=== PATIENT | male | born 1965 | race Caucasian/White ===

== ENCOUNTER 2019-01-13 06:52 | Emergency (ER) | payer SELFPAY ==
--- NOTE | 2019-01-13 08:52 | EDM.PDOC ---
ED HPI GENERAL MEDICAL PROBLEM - General Chief Complaint: Drug or Alcohol Abuse Stated Complaint: DETOX Time Seen by Provider: 01/13/19 08:35 Source of Information: Reports: Patient, Old Records, RN History Limitations: Reports: No Limitations - History of Present Illness INITIAL COMMENTS - FREE TEXT/NARRATIVE: 53 yo male patient at [facility] was sent to the ER for evaluation of jaundice and mild confusion. Has a pHx of heavy ETOH abuse. No fever reported or pain. Onset: Gradual Onset Date: 01/12/19 Duration: Day(s): (1+), Getting Worse Location: Reports: Face (scleral icterus) Quality: Reports: Other (no pain) Severity: Moderate Improves with: Reports: None Worsens with: Reports: Other (? time) Context: Reports: Other (ETOH heavy use) Associated Symptoms: Reports: No Other Symptoms Treatments EXPEDITER SERVICE ORDER: Reports: Other (see below) Other Treatments EXPEDITER SERVICE ORDER: Valium and Ativan at [facility] Denies Pain Score (Numeric/FACES): 0 - Related Data Allergies Allergy/AdvReac Type Severity Reaction Status Date / Time No Known Allergies Allergy Verified 01/13/19 06:57 Home Meds: Home Meds Ferrous Gluconate [Fergon] 270 mg PO DAILY 01/13/19 [History] Levothyroxine [Synthroid] 50 mcg PO ACBREAKFAST 01/13/19 [History] Lisinopril/Hydrochlorothiazide [Lisinopril-Hctz 20-12.5 mg Tab] 1 each PO DAILY 01/13/19 [History] Magnesium Oxide [Magnesium] 400 mg PO DAILY 01/13/19 [History] Omeprazole 20 mg PO ONETIME 01/13/19 [History] Potassium 99 mg PO DAILY 01/13/19 [History] Sertraline [Zoloft] 100 mg PO BEDTIME 01/13/19 [History] Spironolactone [Aldactone] 50 mg PO DAILY 01/13/19 [History] atorvaSTATin [Lipitor] 40 mg PO BEDTIME 01/13/19 [History] buPROPion [Wellbutrin SR] 300 mg PO DAILY 01/13/19 [History] Past Medical History Cardiovascular History: Reports: Hypertension Gastrointestinal History: Reports: GERD, Hiatal Hernia Musculoskeletal History: Reports: Other (See Below) Other Musculoskeletal History: uses a cane Psychiatric History: Reports: Anxiety, Depression Endocrine/Metabolic History: Reports: Hypothyroidism Social & Family History - Tobacco Use Smoking Status *Q: Never Smoker Second Hand Smoke Exposure: No - Caffeine Use Caffeine Use: Reports: Tea - Alcohol Use Days Per Week of Alcohol Use: 7 Number of Drinks Per Day: 20 Total Drinks Per Week: 140 Date of Last Drink: 01/11/19 Time of Last Drink: 10:00 - Recreational Drug Use Recreational Drug Use: Yes Drug Use in Last 12 Months: No Recreational Drug Type: Reports: Methamphetamine Recreational Drug Use Frequency: Not Used In Over 6 Months ED ROS GENERAL - Review of Systems Review Of Systems: See Below Constitutional: Reports: No Symptoms HEENT: Reports: Other (scleral icterus) Respiratory: Reports: No Symptoms Cardiovascular: Reports: No Symptoms GI/Abdominal: Reports: No Symptoms : Reports: No Symptoms Musculoskeletal: Reports: No Symptoms Skin: Reports: No Symptoms Neurological: Reports: Confusion (mild) Psychiatric: Reports: No Symptoms ED EXAM, GI/ABD - Physical Exam Exam: See Below Exam Limited By: No Limitations General Appearance: Alert, WD/WN, No Apparent Distress Ears: Normal External Exam, Hearing Grossly Normal Nose: Normal Inspection, No Blood Throat/Mouth: Normal Inspection, Normal Lips, Normal Oropharynx, Normal Voice, No Airway Compromise Head: Atraumatic, Normocephalic Neck: Normal Inspection, Non-Tender Respiratory/Chest: No Respiratory Distress, Lungs Clear, Normal Breath Sounds, No Accessory Muscle Use Cardiovascular: Normal Peripheral Pulses, Regular Rate, Rhythm, No Edema GI/Abdominal Exam: Normal Bowel Sounds, Soft, Non-Tender, No Distention Extremities: Normal Inspection, Normal Range of Motion, Non-Tender, No Pedal Edema Neurological: Alert, Oriented, CN II-XII Intact, Normal Cognition Psychiatric: Normal Affect, Normal Mood Skin Exam: Warm, Dry, Intact, Normal Color, No Rash Course - Vital Signs Text/Narrative:: Dr. Cheryl mcconnelld @ 1121h Last Recorded V/S: Last Vital Signs Temp 35.9 C 01/13/19 07:29 Pulse 103 H 01/13/19 07:29 Resp 16 01/13/19 07:29 BP 138/84 01/13/19 07:29 Pulse Ox 96 01/13/19 07:29 - Orders/Labs/Meds Orders: Active Orders 24 hr Category Date Time Status UA W/MICROSCOPIC [URIN] Stat Lab 01/13/19 08:35 Received Labs: Laboratory Tests 01/13/19 01/13/19 01/13/19 Range/Units 07:05 07:30 07:30 WBC 4.0 L (4.5-11.0) K/uL RBC 3.64 L (4.30-5.90) M/uL Hgb 11.2 L (12.0-15.0) g/dL Hct 35.1 L (40.0-54.0) % MCV 96 (80-98) fL MCH 31 (27-31) pg MCHC 32 (32-36) % Plt Count 34 L (150-400) K/uL Sodium 135 L (140-148) mmol/L Potassium 4.1 (3.6-5.2) mmol/L Chloride 99 L (100-108) mmol/L Carbon Dioxide 24 (21-32) mmol/L Anion Gap 16.1 H (5.0-14.0) mmol/L BUN 11 (7-18) mg/dL Creatinine 1.2 (0.8-1.3) mg/dL Est Cr Clr Drug Dosing 73.81 mL/min Estimated GFR (MDRD) > 60 (>60) Glucose 85 (74-106) mg/dL Calcium 9.9 (8.5-10.1) mg/dL Total Bilirubin 7.8 H (0.2-1.0) mg/dL AST 507 H (15-37) U/L ALT 171 H (12-78) U/L Alkaline Phosphatase 289 H (46-116) U/L Ammonia (11-32) mmol/L Total Protein 6.7 (6.4-8.2) g/dL Albumin 3.2 L (3.4-5.0) g/dL Globulin 3.5 (2.3-3.5) g/dL Albumin/Globulin Ratio 0.9 L (1.2-2.2) Urine Opiates Screen (NEGATIVE) Ur Oxycodone Screen (NEGATIVE) Urine Methadone Screen (NEGATIVE) Ur Propoxyphene Screen (NEGATIVE) Ur Barbiturates Screen (NEGATIVE) Ur Tricyclics Screen (NEGATIVE) Ur Phencyclidine Scrn (NEGATIVE) Ur Amphetamine Screen (NEGATIVE) U Methamphetamines Scrn (NEGATIVE) Urine MDMA Screen (NEGATIVE) U Benzodiazepines Scrn (NEGATIVE) U Cocaine Metab Screen (NEGATIVE) U Marijuana (THC) Screen (NEGATIVE) Ethyl Alcohol < 3 mg/dL 01/13/19 01/13/19 Range/Units 07:30 07:43 WBC (4.5-11.0) K/uL RBC (4.30-5.90) M/uL Hgb (12.0-15.0) g/dL Hct (40.0-54.0) % MCV (80-98) fL MCH (27-31) pg MCHC (32-36) % Plt Count (150-400) K/uL Sodium (140-148) mmol/L Potassium (3.6-5.2) mmol/L Chloride (100-108) mmol/L Carbon Dioxide (21-32) mmol/L Anion Gap (5.0-14.0) mmol/L BUN (7-18) mg/dL Creatinine (0.8-1.3) mg/dL Est Cr Clr Drug Dosing mL/min Estimated GFR (MDRD) (>60) Glucose (74-106) mg/dL Calcium (8.5-10.1) mg/dL Total Bilirubin (0.2-1.0) mg/dL AST (15-37) U/L ALT (12-78) U/L Alkaline Phosphatase (46-116) U/L Ammonia 117 H (11-32) mmol/L Total Protein (6.4-8.2) g/dL Albumin (3.4-5.0) g/dL Globulin (2.3-3.5) g/dL Albumin/Globulin Ratio (1.2-2.2) Urine Opiates Screen Negative (NEGATIVE) Ur Oxycodone Screen Negative (NEGATIVE) Urine Methadone Screen Negative (NEGATIVE) Ur Propoxyphene Screen Negative (NEGATIVE) Ur Barbiturates Screen Negative (NEGATIVE) Ur Tricyclics Screen Negative (NEGATIVE) Ur Phencyclidine Scrn Negative (NEGATIVE) Ur Amphetamine Screen Negative (NEGATIVE) U Methamphetamines Scrn Negative (NEGATIVE) Urine MDMA Screen Negative (NEGATIVE) U Benzodiazepines Scrn Presumptive positive H (NEGATIVE) U Cocaine Metab Screen Negative (NEGATIVE) U Marijuana (THC) Screen Negative (NEGATIVE) Ethyl Alcohol mg/dL Meds: Medications Discontinued Medications Generic Name Dose Route Start Last Admin Trade Name Freq PRN Reason Stop Dose Admin Lactulose 20 gm 01/13/19 08:55 Chronulac PO 01/13/19 08:56 ONETIME ONE Departure - Departure Time of Disposition: 09:15 Disposition: Admitted As Inpatient 65 Condition: Fair Clinical Impression: Hepatic encephalopathy, Thrombocytopenia Alcoholic hepatitis Qualifiers: Ascites presence: without ascites Qualified Code(s): K70.10 - Alcoholic hepatitis without ascites - Discharge Information *PRESCRIPTION DRUG MONITORING PROGRAM REVIEWED*: No *COPY OF PRESCRIPTION DRUG MONITORING REPORT IN PATIENT SHANNAN: No Referrals: PCP,None [Primary Care Provider] - Forms: ED Department Discharge - My Orders Last 24 Hours: My Active Orders 01/13/19 08:35 UA W/MICROSCOPIC [URIN] Stat - Assessment/Plan Last 24 Hours: My Active Orders 01/13/19 08:35 UA W/MICROSCOPIC [URIN] Stat
[2019-01-13] MEDS ORDERED: Lactulose Soln 10 GM/15 ML 15 ML UD Cup PO ONE (08:55)
--- NOTE | 2019-01-13 21:09 | PCM.HP ---
H&P History of Present Illness - General Date of Service: 01/13/19 Source of Information: Patient, EMS - History of Present Illness Initial Comments - Free Text/Narative: Juan R was admitted to [facility] for treatment of alcohol. He was given diazepam as well as Ativan and was still not coming out of his delirium tremors. He started to have a yellow hue and appeared to have increasing liver failure and was hallucinating. The nurses had called me and we sent him into the emergency room for evaluation. Emergency room called and wanted him admitted. He has a long history of alcoholism and has been in [facility] in the past for severe liver failure but goes right back to alcohol consumption again. The nurses related that he was hallucinating almost the entire time that he was in the emergency room which was over 6 hours and would need to be in the ICU bed and we have no beds at the present time. He is unable to give a good history at the present time. I then spoke with his physician in [place] and he gave the history that the family is very heavy and alcohol including his and CVA unable to transport him and his advice would be sent to think on hospital again because of severe liver problems. I'm unable to get a good reliable review of systems or a past medical history from the patient. Denies Pain Score (Numeric/FACES): 0 - Related Data Allergies/Adverse Reactions: Allergies Allergy/AdvReac Type Severity Reaction Status Date / Time No Known Allergies Allergy Verified 01/13/19 06:57 Home Medications: Home Meds Ferrous Gluconate [Fergon] 270 mg PO DAILY 01/13/19 [History] Levothyroxine [Synthroid] 50 mcg PO ACBREAKFAST 01/13/19 [History] Lisinopril/Hydrochlorothiazide [Lisinopril-Hctz 20-12.5 mg Tab] 1 each PO DAILY 01/13/19 [History] Magnesium Oxide [Magnesium] 400 mg PO DAILY 01/13/19 [History] Omeprazole 20 mg PO ONETIME 01/13/19 [History] Potassium 99 mg PO DAILY 01/13/19 [History] Sertraline [Zoloft] 100 mg PO BEDTIME 01/13/19 [History] Spironolactone [Aldactone] 50 mg PO DAILY 01/13/19 [History] atorvaSTATin [Lipitor] 40 mg PO BEDTIME 01/13/19 [History] buPROPion [Wellbutrin SR] 300 mg PO DAILY 01/13/19 [History] Past Medical History Cardiovascular History: Reports: Hypertension Gastrointestinal History: Reports: GERD, Hiatal Hernia Musculoskeletal History: Reports: Other (See Below) Other Musculoskeletal History: uses a cane Psychiatric History: Reports: Anxiety, Depression Endocrine/Metabolic History: Reports: Hypothyroidism Social & Family History - Tobacco Use Smoking Status *Q: Never Smoker Second Hand Smoke Exposure: No - Caffeine Use Caffeine Use: Reports: Tea - Alcohol Use Days Per Week of Alcohol Use: 7 Number of Drinks Per Day: 20 Total Drinks Per Week: 140 Date of Last Drink: 01/11/19 Time of Last Drink: 10:00 - Recreational Drug Use Recreational Drug Use: Yes Drug Use in Last 12 Months: No Recreational Drug Type: Reports: Methamphetamine Recreational Drug Use Frequency: Not Used In Over 6 Months H&P Review of Systems - Review of Systems: Review Of Systems: See Below General: Reports: ROS unobtainable Exam - Exam Exam: See Below - Vital Signs Vital Signs: Last Vital Signs Temp 97.3 F 01/13/19 15:17 Pulse 93 01/13/19 15:17 Resp 18 01/13/19 15:17 BP 151/86 H 01/13/19 15:17 Pulse Ox 98 01/13/19 15:17 Weight: 214 lb 6.4 oz - Exam General: Moderate Distress HEENT: PERRLA, Scleral Icterus Neck: Supple Lungs: Clear to Auscultation, Normal Respiratory Effort Cardiovascular: Regular Rate GI/Abdominal Exam: Normal Bowel Sounds, Soft, Distended, Guarding Back Exam: Normal Inspection Extremities: Pedal Edema Peripheral Pulses: 1+: Radial (L), Radial (R) Skin: Other (icteric) Neurological: Cranial Nerves Intact Neuro Extensive - Mental Status: Disorientation to Person, Disorientation to Place, Disorientation to Time DTR: 1+: Bicep (L), Bicep (R) Psychiatric: Hallucinations, Withdrawal Symptoms - Patient Data Lab Results Last 24 hrs: Laboratory Results - last 24 hr 01/13/19 01/13/19 01/13/19 Range/Units 07:05 07:30 07:30 WBC 4.0 L (4.5-11.0) K/uL RBC 3.64 L (4.30-5.90) M/uL Hgb 11.2 L (12.0-15.0) g/dL Hct 35.1 L (40.0-54.0) % MCV 96 (80-98) fL MCH 31 (27-31) pg MCHC 32 (32-36) % Plt Count 34 L (150-400) K/uL Sodium 135 L (140-148) mmol/L Potassium 4.1 (3.6-5.2) mmol/L Chloride 99 L (100-108) mmol/L Carbon Dioxide 24 (21-32) mmol/L Anion Gap 16.1 H (5.0-14.0) mmol/L BUN 11 (7-18) mg/dL Creatinine 1.2 (0.8-1.3) mg/dL Est Cr Clr Drug Dosing 73.81 mL/min Estimated GFR (MDRD) > 60 (>60) Glucose 85 (74-106) mg/dL Calcium 9.9 (8.5-10.1) mg/dL Total Bilirubin 7.8 H (0.2-1.0) mg/dL AST 507 H (15-37) U/L ALT 171 H (12-78) U/L Alkaline Phosphatase 289 H (46-116) U/L Ammonia (11-32) mmol/L Total Protein 6.7 (6.4-8.2) g/dL Albumin 3.2 L (3.4-5.0) g/dL Globulin 3.5 (2.3-3.5) g/dL Albumin/Globulin Ratio 0.9 L (1.2-2.2) Urine Color Urine Appearance Urine pH (4.5-8.0) Ur Specific [place] (1.008-1.030) Urine Protein (NEGATIVE) mg/dL Urine Glucose (UA) (NEGATIVE) mg/dL Urine Ketones (NEGATIVE) mg/dL Urine Occult Blood (NEGATIVE) Urine Nitrite (NEGAITVE) Urine Bilirubin (NEGATIVE) Urine Urobilinogen (NORMAL) mg/dL Ur Leukocyte Esterase (NEGATIVE) Urine RBC (0-5) Urine WBC (0-5) Ur Epithelial Cells Amorphous Sediment Urine Bacteria Urine Mucus Urine Opiates Screen (NEGATIVE) Ur Oxycodone Screen (NEGATIVE) Urine Methadone Screen (NEGATIVE) Ur Propoxyphene Screen (NEGATIVE) Ur Barbiturates Screen (NEGATIVE) Ur Tricyclics Screen (NEGATIVE) Ur Phencyclidine Scrn (NEGATIVE) Ur Amphetamine Screen (NEGATIVE) U Methamphetamines Scrn (NEGATIVE) Urine MDMA Screen (NEGATIVE) U Benzodiazepines Scrn (NEGATIVE) U Cocaine Metab Screen (NEGATIVE) U Marijuana (THC) Screen (NEGATIVE) Ethyl Alcohol < 3 mg/dL 01/13/19 01/13/19 01/13/19 Range/Units 07:30 07:43 08:35 WBC (4.5-11.0) K/uL RBC (4.30-5.90) M/uL Hgb (12.0-15.0) g/dL Hct (40.0-54.0) % MCV (80-98) fL MCH (27-31) pg MCHC (32-36) % Plt Count (150-400) K/uL Sodium (140-148) mmol/L Potassium (3.6-5.2) mmol/L Chloride (100-108) mmol/L Carbon Dioxide (21-32) mmol/L Anion Gap (5.0-14.0) mmol/L BUN (7-18) mg/dL Creatinine (0.8-1.3) mg/dL Est Cr Clr Drug Dosing mL/min Estimated GFR (MDRD) (>60) Glucose (74-106) mg/dL Calcium (8.5-10.1) mg/dL Total Bilirubin (0.2-1.0) mg/dL AST (15-37) U/L ALT (12-78) U/L Alkaline Phosphatase (46-116) U/L Ammonia 117 H (11-32) mmol/L Total Protein (6.4-8.2) g/dL Albumin (3.4-5.0) g/dL Globulin (2.3-3.5) g/dL Albumin/Globulin Ratio (1.2-2.2) Urine Color Other Urine Appearance Clear Urine pH 9.0 H (4.5-8.0) Ur Specific [place] 1.005 L (1.008-1.030) Urine Protein 30 H (NEGATIVE) mg/dL Urine Glucose (UA) Normal (NEGATIVE) mg/dL Urine Ketones Negative (NEGATIVE) mg/dL Urine Occult Blood Moderate (NEGATIVE) Urine Nitrite Negative (NEGAITVE) Urine Bilirubin Moderate (NEGATIVE) Urine Urobilinogen 1 (NORMAL) mg/dL Ur Leukocyte Esterase Negative (NEGATIVE) Urine RBC 0-5 (0-5) Urine WBC 0-5 (0-5) Ur Epithelial Cells Few Amorphous Sediment Not seen Urine Bacteria Few Urine Mucus Not seen Urine Opiates Screen Negative (NEGATIVE) Ur Oxycodone Screen Negative (NEGATIVE) Urine Methadone Screen Negative (NEGATIVE) Ur Propoxyphene Screen Negative (NEGATIVE) Ur Barbiturates Screen Negative (NEGATIVE) Ur Tricyclics Screen Negative (NEGATIVE) Ur Phencyclidine Scrn Negative (NEGATIVE) Ur Amphetamine Screen Negative (NEGATIVE) U Methamphetamines Scrn Negative (NEGATIVE) Urine MDMA Screen Negative (NEGATIVE) U Benzodiazepines Scrn Presumptive positive H (NEGATIVE) U Cocaine Metab Screen Negative (NEGATIVE) U Marijuana (THC) Screen Negative (NEGATIVE) Ethyl Alcohol mg/dL Result Diagrams: 01/13/19 07:30 01/13/19 07:30 Problem List Initiated/Reviewed/Updated: Yes Assessment/Plan Comment:: Pssessment/plan: #1. Alcoholism with liver failure #2. Delirium tremors. He needs more care than what we can provide here I called [facility] and talked with the hospitalist and they will accept him and he'll be transferred to that facility. His bilirubin here is 7.8 with AST being 507 and ALT 171. The alkaline phosphatase is 289. The morning level is 117 this may be part of the reason for his delirium as well albumin is 3.2 hemoglobin 11 2 and white count 4.0 sodium-potassium are unremarkable. The platelets are 34, 000. I've arranged for him to be transferred to [facility] and they have accepted him.
== END 2019-01-13 16:54 | disposition critical access hospital (66) ==
LOC: JP.ED 06:52
DX: K72.90 Hepatic failure, unspecified without coma (principal); K70.10 Alcoholic hepatitis without ascites; D69.6 Thrombocytopenia, unspecified; I10 Essential (primary) hypertension; K21.9 Gastro-esophageal reflux disease without esophagitis; F41.9 Anxiety disorder, unspecified; F32.9 Major depressive disorder, single episode, unspecified; E03.9 Hypothyroidism, unspecified; Z79.899 Other long term (current) drug therapy
CPT/HCPCS: 36415; 80053; 80305; 81001; 82140; 85027; 99284; A9270; G0480